=== PATIENT | female | born 1975 | race Caucasian/White ===

== ENCOUNTER 2021-01-11 14:59 | Emergency (ER) | payer OTHER, SELFPAY ==
[2021-01-11 15:06] VITALS: BP 139/88; PULSE 85; RESP 18; TEMP 36.7; O2SAT 100; BMI 29.0
--- NOTE | 2021-01-11 15:50 | PC.NURSE ---
completed interview with patient jennifer stated only medical issue for which she takes meds-hypothyroid for which she is current with levothyroxine.prev DX of bipolar d/o states she was treated 12 years ago and some treatment she felt she didnt need fills meds at [facility] LMP 2 weeks ago has two children aged 21 and 17. diet and sleep[ patterns have been off/irregluar recently. THC use daily up until a few weeks ago, denies other drug and etoh use. denies hallucinations contracts for safety
[2021-01-11 17:31] LABS: MANUAL DIFF FLAG NO
[2021-01-11 17:33] LABS: Basophils Percent Auto 0.6 % (0-2); Eosinophils Absolute Auto 0.1 X10*3/uL (0.0-0.4); Eosinophils Percent Auto 1.1 % (0-4); Hematocrit 38.5 % (37-47); Imm Gran Abs Auto 0.02 X10*3/uL (0.00-0.03); Imm Gran Pct Auto 0.3 % (0.0-0.4); Lymphocytes Absolute Auto 2.3 X10*3/uL (1.2-4.9); Lymphocytes Percent Auto 31.8 % (20-40); Mean Corpuscular HGB Conc 33.8 g/dl (31.0-35.0); Mean Corpuscular Volume 88.9 fL (80-98); Mean Platelet Volume 10.3 fL (9.4-12.3); Monocytes Absolute Auto 0.6 X10*3/uL (0.1-1.2); Monocytes Percent Auto 8.5 % (2-11); Neutrophils Absolute Auto 4.1 X10*3/uL (2.0-8.3); Neutrophils Percent Auto 57.7 % (45-73); Platelet Count 267 X10*3/uL (160-400); Red Blood Count 4.33 X10*6/uL (4.20-5.50); Red Cell Distribution Width 13.2 % (11.0-16.0); White Blood Count 7.2 X10*3/uL (4.8-10.8)
--- NOTE | 2021-01-11 17:36 | ED_ITS ---
HPI - Psych General Chief Complaint: Psychiatric Symptoms <Mamta Delgado PA-C - Last Filed: 01/11/21 18:10> Stated Complaint: SI <KRISTEN Posey Last Filed: 01/11/21 18:10> Time Seen by Provider: 01/11/21 15:35 <KRISTEN Posey Last Filed: 01/11/21 18:10> Source: patient <KRISTEN Posey Last Filed: 01/11/21 18:10> Mode of arrival: ambulatory <KRISTEN Posey Last Filed: 01/11/21 18:10> Limitations: no limitations <KRISTEN Posey Last Filed: 01/11/21 18:10> History of Present Illness HPI Narrative: Patient is a 45-year-old female with a past medical history of bipolar, diagnosed at the age of 32 on lithium for approximately 2-3 years but has been off of medications for 12 years who is here today for panic attacks and intrusive thoughts. Patient states she was sitting on her bed today with her 21-year-old daughter when she suddenly had a thought to punch her daughter in the head, she knew she had unwanted do this so she had to leave the room. She states she has thoughts like this quite often and it has been getting worse. She states she also has panic attacks with seem to exacerbate the thoughts. She states she also has thoughts to hurt herself but knows not to do so and does not have any plans to do so. She states she cannot control the thoughts but she does not want to go back on medications because they make her feel like she has owned out and they made her gain weight. She states she tried lithium for while and then was on other meds but she does not remember the names of them. She is not currently on any medication order she see a therapist. She states she her and has just been taking care of herself and ignoring her problems. 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 She states she took a half a mg of Ativan just prior to arrival. <KRISTEN Posey Last Filed: 01/11/21 18:10> Related Data Allergies/Adverse Reactions: Allergies Allergy/AdvReac Type Severity Reaction Status Date / Time No Known Allergies Allergy Verified 01/11/21 15:05 <Mamta Delgado PA-C - Last Filed: 01/11/21 18:10> Review of Systems Review of Systems: Yes all other systems are reviewed and are negative <Mamta Delgado PA-C - Last Filed: 01/11/21 18:10> COUNT INCLUDES THE [facility] Past Medical History Medical History: Medical History Anxiety Depression Hypothyroid <Mamta Delgado PA-C - Last Filed: 01/11/21 18:10> Social History Social History: Social History Advance Directives: No Advance Directives Information Provided: Yes Patient : No <Mamta Delgado PA-C - Last Filed: 01/11/21 18:10> Physical Exam Vital Signs: Vital Signs: Last Vital Signs Temp 98.0 F 01/11/21 15:06 Pulse 85 01/11/21 15:06 Resp 18 01/11/21 15:06 BP 139/88 01/11/21 15:06 Pulse Ox 100 01/11/21 15:06 Body Mass Index 29.0 <Mamta Delgado PA-C - Last Filed: 01/11/21 18:10> Vital Signs: Last Vital Signs Temp 98.0 F 01/11/21 15:06 Pulse 85 01/11/21 15:06 Resp 18 01/11/21 15:06 BP 139/88 01/11/21 15:06 Pulse Ox 100 01/11/21 15:06 Body Mass Index 29.0 <ОЛЕГ Golden-HAZEL - Last Filed: 01/13/21 01:14> Const: General: cooperative, healthy appearing, comfortable, no acute distress and well developed <Mamta Delgado PA-C - Last Filed: 01/11/21 18:10> Orientation/consciousness: patient oriented x3 <Mamta Delgado PA-C - Last Filed: 01/11/21 18:10> Limitations: no limitations <KRISTEN Posey Last Filed: 01/11/21 18:10> HENMT: Head: Yes normal to inspection <Mamta Delgado PA-C Jayden Last Filed: 01/11/21 18:10> Eyes: General: appearance normal, both eyes and all related structures <Mamta Delgado PA-C - Last Filed: 01/11/21 18:10> Neck: Neck: Yes normal visual inspection and Yes full ROM <JO PoseyAldo Tus reQRdos Last Filed: 01/11/21 18:10> Resp: Effort & Inspection: normal respiratory effort and able to speak in complete sentences <JO PoseyAldo - Last Filed: 01/11/21 18:10> Auscultation: clear to auscultation bilaterally <Mamta Delgado PA-C - Last Filed: 01/11/21 18:10> Cardio: Rate: regular rate <Mamta Delgado PA-C Tus reQRdos Last Filed: 01/11/21 18:10> Rhythm: regular rhythm <JO PoseyAldo Tus reQRdos Last Filed: 01/11/21 18:10> Heart sounds: normal S1 and S2 <Mamta Delgado PA-C Tus reQRdos Last Filed: 01/11/21 18:10> GI: Inspection: Yes normal to inspection <Mamta Delgado PA-C - Last Filed: 01/11/21 18:10> Palpation (GI): Soft to palpation and nontender <Mamta Delgado PA-C Tus reQRdos Last Filed: 01/11/21 18:10> Skin: General skin exam: no rashes or lesions noted <JO Posey Tus reQRdos Last Filed: 01/11/21 18:10> Neuro: General: patient oriented x3 <Mamta Delgado PA-C Tus reQRdos Last Filed: 01/11/21 18:10> Extrem: General: Yes normal to inspection <Mamta Delgado PA-C Jayden Last Filed: 01/11/21 18:10> Psych: Appearance: grossly normal and well kempt <Mamta Delgado PA-C Tus reQRdos Last Filed: 01/11/21 18:10> Speech and movement: Normal speech and movement present <Mamta Delgado PA-C - Last Filed: 01/11/21 18:10> Affect: Sad affect present and Anxious affect present <JO Posey - Last Filed: 01/11/21 18:10> Attitude: cooperative <Mamta Delgado PA-C - Last Filed: 01/11/21 18:10> Thought process: Normal thought process present <KRISTEN Posey Last Filed: 01/11/21 18:10> Thought content: Suicidality present (Intrusive thoughts but no plan), Homicidality present (Intrusive thoughts), delusions (Intrusive thoughts), no hallucinations and Depressive thoughts present <Mamta Delgado PA-C - Last Filed: 01/11/21 18:10> Insight: Fair insight present (Psych) <KRISTEN Posey Last Filed: 01/11/21 18:10> Judgement: Fair judgement present (Psych) <Mamta Delgado PA-C - Last Filed: 01/11/21 18:10> Course Course Course Narrative: Patient is a 45-year-old female with a past medical history of bipolar, diagnosed at the age of 32 on lithium for approximately 2-3 years but has been off of medications for 12 years who is here today for panic attacks and intrusive thoughts. VSS. Physical exam unremarkable, patient very distraught about the intrusive thought she is having to hurt herself or someone else but does not seem like she would act on it as she knows it is not a rational thought. Patient clearly needs an evaluation by psych as well as to be restarted on some bipolar medications. Will put in Ativan p.r.n. for anxiety and a BHN referral. <Mamta Delgado PA-C - Last Filed: 01/11/21 18:10> Reevaluation(s) Reevaluation #1: Sign-out to Arm[facility] <Mamta Delgado PA-C - Last Filed: 01/11/21 18:10> Time: 17:43 <KRISTEN Posey Last Filed: 01/11/21 18:10> Reevaluation #2: Patient was evaluated by crisis team. Patient denies HI or his SI. Patient is stressed out at home and at work. Does not want to deal with taking care of boyfriend. Patient wants to go home so she can follow-up with partial therapy and call Psychiatry. Patient will call her HR department so she can take family leave. I will have her speak to 1 of our Behavioral providers who can assess her. <ОЛЕГ Golden-BC - Last Filed: 01/13/21 01:14> Reevaluation #3: Patient evaluated by Behavioral provider who agrees with crisis team disposition. Patient will be discharged home to follow-up with partial program. Patient is agreeable to this plan and verbalizes understanding of instructions. She was given the opportunity to ask questions all questions answered. Patient denies SI or HI. Reports that she is safe to go home. The [facility] provider is sending 1 time dose of trazodone for her so she can get some rest. <ОЛЕГ Golden-BC - Last Filed: 01/13/21 01:14> MDM - Psych Lab Data Result diagrams: : 01/11/21 17:25 01/11/21 17:26 <Mamta Delgado PA-C - Last Filed: 01/11/21 18:10> Labs: Lab Results 01/11/21 01/11/21 01/11/21 Range/Units 17:18 17:25 17:26 WBC 7.2 (4.8-10.8) X10*3/uL RBC 4.33 (4.20-5.50) X10*6/uL Hgb 13.0 (12.0-16.0) g/dl Hct 38.5 (37-47) % MCV 88.9 (80-98) fL MCH 30.0 (27.0-33.0) pg MCHC 33.8 (31.0-35.0) g/dl RDW 13.2 (11.0-16.0) % Plt Count 267 (160-400) X10*3/uL MPV 10.3 (9.4-12.3) fL Immature Gran % (Auto) 0.3 (0.0-0.4) % Neut % (Auto) 57.7 (45-73) % Lymph % (Auto) 31.8 (20-40) % [place] % (Auto) 8.5 (2-11) % Eos % (Auto) 1.1 (0-4) % Baso % (Auto) 0.6 (0-2) % Lymph # (Auto) 2.3 (1.2-4.9) X10*3/uL [place] # (Auto) 0.6 (0.1-1.2) X10*3/uL Eos # (Auto) 0.1 (0.0-0.4) X10*3/uL Baso # (Auto) 0.0 (0.0-0.2) X10*3/uL Abs Immat Gran (auto) 0.02 (0.00-0.03) X10*3/uL Absolute Neuts (auto) 4.1 (2.0-8.3) X10*3/uL Absolute Nucleated RBC 0.000 (0.0-0.012) X10*3/uL Nucleated RBC % (auto) 0.0 (0.0-0.2) /100WBC Sodium 139 (135-145) mmol/L Potassium 3.9 (3.3-5.1) mmol/L Chloride 107 (96-108) mmol/L Carbon Dioxide 26 (22-29) mmol/L Anion Gap 10 L (12-20) BUN 10 (9-16) mg/dL Creatinine 0.73 (0.5-1.4) mg/dL Estim Creat Clear Calc 107.0 Estimated GFR > 60 Random Glucose 94 (60-115) mg/dL Calcium 9.4 (8.4-10.2) mg/dL Total Bilirubin 0.6 (0.0-1.0) mg/dL AST 10 (5-31) U/L ALT 12 (0-31) U/L Alkaline Phosphatase 67 (39-117) U/L Total Protein 7.1 (6.5-8.0) g/dL Albumin 4.4 (3.5-5.0) g/dL COVID-19 (MONE) Negative (Negative) COVID-19 Clin Com See Note <Mamta Delgado PA-C - Last Filed: 01/11/21 18:10> Lab Results 01/11/21 01/11/21 01/11/21 Range/Units 17:18 17:25 17:26 WBC 7.2 (4.8-10.8) X10*3/uL RBC 4.33 (4.20-5.50) X10*6/uL Hgb 13.0 (12.0-16.0) g/dl Hct 38.5 (37-47) % MCV 88.9 (80-98) fL MCH 30.0 (27.0-33.0) pg MCHC 33.8 (31.0-35.0) g/dl RDW 13.2 (11.0-16.0) % Plt Count 267 (160-400) X10*3/uL MPV 10.3 (9.4-12.3) fL Immature Gran % (Auto) 0.3 (0.0-0.4) % Neut % (Auto) 57.7 (45-73) % Lymph % (Auto) 31.8 (20-40) % [place] % (Auto) 8.5 (2-11) % Eos % (Auto) 1.1 (0-4) % Baso % (Auto) 0.6 (0-2) % Lymph # (Auto) 2.3 (1.2-4.9) X10*3/uL [place] # (Auto) 0.6 (0.1-1.2) X10*3/uL Eos # (Auto) 0.1 (0.0-0.4) X10*3/uL Baso # (Auto) 0.0 (0.0-0.2) X10*3/uL Abs Immat Gran (auto) 0.02 (0.00-0.03) X10*3/uL Absolute Neuts (auto) 4.1 (2.0-8.3) X10*3/uL Absolute Nucleated RBC 0.000 (0.0-0.012) X10*3/uL Nucleated RBC % (auto) 0.0 (0.0-0.2) /100WBC Sodium 139 (135-145) mmol/L Potassium 3.9 (3.3-5.1) mmol/L Chloride 107 (96-108) mmol/L Carbon Dioxide 26 (22-29) mmol/L Anion Gap 10 L (12-20) BUN 10 (9-16) mg/dL Creatinine 0.73 (0.5-1.4) mg/dL Estim Creat Clear Calc 107.0 Estimated GFR > 60 Random Glucose 94 (60-115) mg/dL Calcium 9.4 (8.4-10.2) mg/dL Total Bilirubin 0.6 (0.0-1.0) mg/dL AST 10 (5-31) U/L ALT 12 (0-31) U/L Alkaline Phosphatase 67 (39-117) U/L Total Protein 7.1 (6.5-8.0) g/dL Albumin 4.4 (3.5-5.0) g/dL COVID-19 (MONE) Negative (Negative) COVID-19 Clin Com See Note <Lou Basilio, SIGNALING PROJECT ENGINEER-BC - Last Filed: 01/13/21 01:14> Discharge Plan Discharge Clinical Impression: Acute psychosis, Depression <Mamta Delgado PA-C - Last Filed: 01/11/21 18:10> Patient Disposition: Home, Self-Care <Mamta Delgado PA-C - Last Filed: 01/11/21 18:10> Instructions: Depression (ED), Suicide Prevention (ED) <Mamta Delgado PA-C - Last Filed: 01/11/21 18:10> Additional Instructions: You were seen here today after increase in anxiety and depression. You were seen by crisis team and Behavioral provider. Please start with the partial program. You may return to emergency department if your symptoms will get worse or if you will experience any additional concerning symptoms. Behavioral provider send you a script for trazodone which is a sleeping medication. <Mamta Delgado PA-C - Last Filed: 01/11/21 18:10> Stand Alone Forms: Work/School Release <Mamta Delgado PA-C - Last Filed: 01/11/21 18:10> Interventions: ED Discharge Assessment Last Done: 01/11/21 21:04 <Mamta Delgado PA-C - Last Filed: 01/11/21 18:10> Discharge Date/Time: 01/11/21 21:19 <Mamta Delgado PA-C - Last Filed: 01/11/21 18:10>
[2021-01-11 17:48] LABS: Alanine Aminotransferase 12 U/L (0-31); Albumin Level 4.4 g/dL (3.5-5.0); Alkaline Phosphatase 67 U/L (39-117); Anion Gap 10 (12-20); Aspartate Amino Transferase 10 U/L (5-31); Bilirubin Total 0.6 mg/dL (0.0-1.0); Blood Urea Nitrogen 10 mg/dL (9-16); Calcium 9.4 mg/dL (8.4-10.2); Carbon Dioxide 26 mmol/L (22-29); Chloride 107 mmol/L (96-108); Estimated Glomerular Filt Rate > 60; Glucose Random 94 mg/dL (60-115); Potassium 3.9 mmol/L (3.3-5.1); Sodium 139 mmol/L (135-145); Total Protein 7.1 g/dL (6.5-8.0)
[2021-01-11 17:49] LABS: COVID-19 Test Negative (Negative); IDNOW Serial# 55D5AD1C
--- NOTE | 2021-01-11 20:43 | PM.PSYCN ---
History of Present Illness Date of Service: 01/11/21 Chief Complaint: SI Reason for Consult: Disposition, medication Requesting physician: Mamta Delgado Sources of Information: patient interviewed, chart reviewed and crisis/core team assessment reviewed HPI Narrative: Pt is a 45 y.o. Female who carries a diagnosis of generalized anxiety disorder, panic disorder, unspecified depressive disorder. She presented to [facility] ED reporting an increase in panic attacks, poor sleep. Utox negative, No alcohol use.?? I evaluated the pt this evening and upon interview she reports she has been having ?panic attacks.? Reports her sleep is restless, appetite ?is not any better,? attributes this to anxiety. Reports she feels anxious about having panic attacks, ruminates on this. Also reports intrusive thoughts of self harm and harming others. Stated she had thoughts to ?break my wrist? and to ?punch my [adult] daughter in the face.? These thoughts cause distress, bother her, stated she ran into her room and cried, denies intent to act on these thoughts. Sx have been worse x a couple weeks, however says her sleep is ?always dada difficult.? Precipitating factors include the pandemic, says ?covid came and crashed the [employer] green party or didn?t help the green party.? Has financial stress, does not like her job. Endorses sx of depression, says she feels ?stuck.? Reports long hx of depression and says she has a tendency to ?bury my head in the sand? when she is stressed, progressing to lack of self care. Feels like ?nothing is going my way.? She denies psychotic sx. No hx of manic or hypomanic episodes endorsed, however has been on lithium in the past. She is hyperverbal during interview but speech is non-pressured. Has remote hx of psych treatment, last took psychotropic medication 12 yr ago. Says she stopped taking meds because ?I didnt want all of that, it didnt do enough to help me,? noticed wt gain. Continues to report ambivalence about ?relying on a medication.? She has an aunt who is a prescriber and says she has prescribed her short term ativan recently for anxiety but says she does not like to take it. She met with the CARE team and is adamant that she does not want inpatient level of care, is interested in PHP. She has been having difficulty obtaining OP services due to not having a PCP, called OP agencies but was told earliest appt for therapist is March. She currently denies SI/SIB upon inquiry. No hx of suicide attempts or self harm. Denies aggression or assaultive ideation. Says she feels safe.? Past med trials: ativan, lithium (diagnosed at age 32, on lithium for 2-3 yrs) PMH: -Hypothyroidism (on levothyroxine) Substance use hx: -Cannabis: used daily ?up until a few weeks ago? due to increased anxiety. 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 Medical Evaluation Reviewed: Yes [facility] Medical History (Updated 01/21/21 @ 08:42 by Patricia Key NP) Anxiety Depression Hypothyroid Diagnostics Vital Signs (24Hr): Vital Signs - 24 hr 01/11/21 15:06 Temperature 98.0 F Pulse Rate 85 Respiratory Rate 18 Blood Pressure 139/88 Pulse Oximetry 100 Body Mass Index 29.0 Labs Results: 01/11/21 17:25 01/11/21 17:26 Labs: Laboratory Results - last 48 hr 01/11/21 01/11/21 01/11/21 17:18 17:25 17:26 WBC 7.2 RBC 4.33 Hgb 13.0 Hct 38.5 MCV 88.9 MCH 30.0 MCHC 33.8 RDW 13.2 Plt Count 267 MPV 10.3 Immature Gran % (Auto) 0.3 Neut % (Auto) 57.7 Lymph % (Auto) 31.8 [place] % (Auto) 8.5 Eos % (Auto) 1.1 Baso % (Auto) 0.6 Lymph # (Auto) 2.3 [place] # (Auto) 0.6 Eos # (Auto) 0.1 Baso # (Auto) 0.0 Abs Immat Gran (auto) 0.02 Absolute Neuts (auto) 4.1 Absolute Nucleated RBC 0.000 Nucleated RBC % (auto) 0.0 Sodium 139 Potassium 3.9 Chloride 107 Carbon Dioxide 26 Anion Gap 10 L BUN 10 Creatinine 0.73 Estim Creat Clear Calc 107.0 Estimated GFR > 60 Random Glucose 94 Calcium 9.4 Total Bilirubin 0.6 AST 10 ALT 12 Alkaline Phosphatase 67 Total Protein 7.1 Albumin 4.4 COVID-19 (MONE) Negative COVID-19 Clin Com See Note Mental Status Exam Mental Status Exam Narrative: A&O. In hospital attire, lying down, somewhat unkempt hair, normal body habitus. Good eye contact, attentive. No Tics or Tremors. No abnormal involuntary movements. Calm, cooperative, engaged. Hyperverbal. Non-pressured speech, spontaneous with regular rate and rhythm, normal volume and prosody. No prolonged speech latency or dysarthria. Mood is ?stressed,? affect is tired. Denies SI/SIB/HI upon inquiry. Denies A/VH or delusional thought content. Thoughts are ruminative. No known cognitive or memory impairment. Insight/ Judgment fair and adequate. Medications Medications Current Medications Generic Name Dose Route Start Last Admin Trade Name Freq PRN Reason Stop Dose Admin Lorazepam 1 mg 01/11/21 17:35 Lorazepam 1 Mg Tablet PO ONCE PRN anxiety Allergies Allergies Allergy/AdvReac Type Severity Reaction Status Date / Time No Known Allergies Allergy Verified 01/11/21 15:05 Assessment & Plan Assessment & Plan (1) Depression: Status: Acute Code(s): F32.9 - Major depressive disorder, single episode, unspecified (2) Anxiety: Status: Acute Code(s): F41.9 - Anxiety disorder, unspecified Assessment and Plan: Plan: Patient wants to go home so she can follow-up with PHP at [facility]. CARE team made referral. Plans to call her HR department so she can take family leave. She does not want to be discharged on medication but asks for one time dose of trazodone to help her sleep tonight. Patient is currently medically cleared. ? Greater than 50% of the session was spent on counseling and/or coordination of care
[2021-01-11] MEDS: traZODone HCL 50 MG TABLET PO (20:50)
--- NOTE | 2021-01-12 00:39 | MHC.CARE ---
Pt is a 45 year old female who presents to [facility] due to worsening depression and intrusive thoughts. Pt reports she has a past hx of bipolar dx, has not been on any medications and is reluctant to. Pt reports she was having thoughts today to break her wrist . She presents as irritable and angry with multiple psychosocial stressors. Pt feels she works to live and doesn't have enough funds to enjoy life. She reports I have nothing my life is falling apart . 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 She talks about a healthy relationship with her boyfriend but his two young children just moved in and he is stressed due to recent court and custody battles with the mother. Pt states she has intrusive thoughts and yesterday had an intrusive thought to punch my daughter in the face . She reports she ran to her room and cried, stating that she would never hurt anyone. She reports she is extremely stressed and scared but states she will not act on these thoughts. Pt reports her appetite and sleep is poor. Pt has no previous PHP or IP hx. She has no hx of attempts. Presents with vague SI, no plan or intent. Requesting too be d/c home and t/w recommended PHP in which she is receptive and interested in. Pt also met with Psych provider Patricia Key NP who agreed with disposition. A referral will be placed.
== END 2021-01-11 21:19 | disposition home or self-care (01) ==
PROVIDERS: Physician Assistant; Emergency Provider Emergency Medicine Emergency Medical Services
DX: F33.1 Major depressive disorder, recurrent, moderate (principal); F41.9 Anxiety disorder, unspecified; R45.851 Suicidal ideations; Z20.822 Contact with and (suspected) exposure to COVID-19
CPT/HCPCS: 36415; 80053; 85025; 87635; 99283; 99284

== ENCOUNTER 2025-04-27 08:02 | Outpatient (REF) | payer OTHER, SELFPAY ==
--- NOTE | ~2025-04-27 | XR_ITS ---
EXAMINATION: XR KNEE, RIGHT CLINICAL INFORMATION: M25.569 - Pain in unspecified knee COMPARISON: None available. TECHNIQUE: AP and lateral views of the right knee. FINDINGS: No acute fracture or dislocation. Mild asymmetric joint space narrowing medial compartment. Small suprapatellar bursa joint effusion. No lytic or blastic lesions. No gross soft tissue calcifications. XR/XR knee RT 2V IMPRESSION: Mild medial compartment osteoarthrosis/osteoarthritis. Small volume suprapatellar bursa joint effusion. Electronically signed by: Bong Villarreal MD 04/27/2025 11:10 AM EVELYN MENDOZA
--- OUTSIDE RECORDS SUMMARY | 2025-04-27 08:05 | XMS_ITS | Encounter Summary ---
Author Organization [facility] Address [address] [place] [address] Care Team Providers Care Bus Boy Name Role Phone Julieta Rausch CLOSING AGENT Primary Care Provi earline Reason for Visit * Reason Comments Medication Refill Encounter Details Date Type Department Care Team (Late st Contact Info) Description 09/06/2020 [facility] [address] [place] [address] Julieta Rausch, CLOSING AGENT [address] [place] [address] Medication Refill Social History Tobacco Use Types Packs/Day Years Used Date Smoking Tobacco: Never Smokeless Tobacco: Never Alcohol Use Standard Drinks/Week Comments Not Asked 0 (1 standard drink = 0.6 oz pur e alcohol) Comments No Sex and Gender Information Value Date Recorded Sex Assigned at Not on file Legal Sex Female 8:20 PM EDT Gender Identity Not on file Sexual Orientation Not on file documented as of this encounter Plan of Treatment Not on file documented as of this encounter Visit Diagnoses Diagnosis Other specified hypothyroidism documented in this encounter Care Teams Bus Boy Relationship Specialty Start Date End Date Julieta Rausch, CLOSING AGENT PCP - General 06/22/14 documented as of this encounter
--- OUTSIDE RECORDS SUMMARY | 2025-04-27 08:06 | XMS_ITS | Encounter Summary ---
Author Organization [facility] Address [address] [place] [address] Care Team Providers Care Corrosion Control Technician Name Role Phone Julieta Rausch APRN Primary Care Provi earline Encounter Details Date Type Department Care Team ([facility] st Contact Info) Description 06/21/2014 Scanned Document [facility] [address] [place] [address] Shayan Tracey MD [address] [id number] Social History Tobacco Use Types Packs/Day Years Used Date Smoking Tobacco: Never Alcohol Use Standard Drinks/Week Comments Not Asked 0 (1 standard drink = 0.6 oz pur e alcohol) Comments Unknown Sex and Gender Information Value Date Recorded Sex Assigned at Not on file Legal Sex Female 8:20 PM EDT Gender Identity Not on file Sexual Orientation Not on file documented as of this encounter Plan of Treatment Not on file documented as of this encounter Visit Diagnoses Not on filedocumented in this encounter Care Teams Corrosion Control Technician Relationship Specialty Start Date End Date Julieta Rausch APRN PCP - General 06/22/14 documented as of this encounter
--- OUTSIDE RECORDS SUMMARY | 2025-04-27 08:06 | XMS_ITS | Clinical Summary ---
Author Organization [facility] [address] Address [address] [address] Care Team Providers Care Manager Distribution Center Name Role Phone Nahomido Julieta Wilson PRABHAKAR Primary Care Provi earline Allergies No known active allergies Medications hydroCHLOROthiazide (MICROZIDE) 12.5 mg capsule Take 1 capsule (12.5 mg total) by mouth daily. 90 capsule 1 0 Active levothyroxine (SYNTHROID, LEVOTHROID) 125 MCG tabletIndications:O ther specified hypothyroidism TAKE 1 TABLET(125 MCG) BY MOUTH DAILY 90 tablet 1 Active Active Problems Problem Noted Date Diagnosed Date Routine general medical exam ination at a health care facility 09/01/2020 Overview (09/01/2020): TDAP:09/15/2012 FLU: ZOSTAVAX: P23: P13: LABS:ordered 08/16/2020 COLO: MAMMO: PAP: 01/08/2016 Reel DEXA: Pruritus ani 05/29/2018 Attention deficit hyperactiv ity disorder (ADHD), predominantly inattentive type 03/20/2014 Overview (02/10/2017): This Dx was updated with the IMO Load 02/09/2017 Hypothyroid 03/20/2014 Immunizations Immunization Administration Dates Next Due Tdap 09/15/2012 Family History Medical History Relation Name Comments Diabetes Father Breast cancer Maternal Aunt Premature ovarian failure Mother Colon cancer Neg Hx Ovarian cancer Neg Hx Relation Name Status Comments Father Maternal Aunt Mother Alive Social History Tobacco Use Types Packs/Day Years Used Date Smoking Tobacco: Never Smokeless Tobacco: Never Alcohol Use Standard Drinks/Week Comments Not Asked 0 (1 standard drink = 0.6 oz pur e alcohol) Comments No Sex and Gender Information Value Date Recorded Sex Assigned at Not on file Legal Sex Female 8:20 PM EDT Gender Identity Not on file Sexual Orientation Not on file Last Filed Vital Signs Vital Sign Reading Time Taken Comments Blood Pressure 100/70 07/15/2019 7:10 AM EST Pulse 80 02/14/2020 7:35 AM EDT Temperature 36.3 C (97.3 F) 02/14/2020 7:35 AM EDT Respiratory Rate 16 07/15/2019 7:10 AM EST Oxygen Saturation 97% 02/14/2020 7:35 AM EDT Inhaled Oxygen Concentration - - Weight 83 kg (183 lb) 07/15/2019 7:10 AM EST Height 167.6 cm (5' 6 ) 07/15/2019 7:10 AM EST Body Mass Index 29.54 07/15/2019 7:10 AM EST Plan of Treatment Health Maintenance Due Date Last Done Comments HIV screening 1990 Hepatitis C screening 10/16/1995 Breast cancer screening 2017 Cervical cancer screening 07/12/2019 07/11/2014 Tetanus adult (Td q 10,TDAP once) 09/15/2022 09/15/2012 Colon cancer screening, Colonoscopy 2022 Diabetes screening 2022 08/17/2018, 03/05/2017 Lipid disorder screening 08/18/2023 019, 08/17/2018 Influenza vaccine 12/10/2024 Covid-19 vaccine series ( - 2024- season) 2025 RSV Immunization (1 - 1-dose 75+ series) 2052 Meningococcal B Vaccine Aged Out No l onger eligible based on patient's age to complete this topic Meningococcal Vaccine Aged Out No diana anastacio eligible based on patient's age to complete this topic Pneumococcal Vaccine (2 - 49 years) Aged Out No longer eligible b ased on patient's age to complete this topic Procedures Procedure Name Priority Date/Time Associated Diagnosis Comments COMPREHENSIVE METABOLIC PANEL Routine 08/17/2018 7:43 AM EDT CHOLESTEROL, TOTAL Routine 08/17/2018 7: 43 AM EDT ZZZCYTOLOGY PIANO S[employer]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 CASES (YH) Routine 07/11/2014 7:50 PM EST from Last 3 Months or Most Recently Relevant to Health Maintenance Results * Cholesterol, total (08/17/2018 7:43 AM EDT) Cholesterol, Total 151 <200 mg/dL [facility] 08/17/2018 7:43 AM EDT 08/17/2018 7:43 AM EDT Narrative [facility] - 08/18/2018 7:27 AM EDT FASTING:NO FASTING: NO us Julieta Rausch PATIENT ACCOUNT REPRESENTATIVE LAB BLOOD ORDERABLE S Final Result Performing Organization Address City/State/[facility] Co de Phone Number [facility] [address] [place] [address] * Comprehensive metabolic panel (08/17/2018 7:43 AM EDT) Glucose 85 65 - 139 mg/dL [facility] Comment: Non-fasting reference interval BUN 15 7 - 25 mg/dL [facility] Creatinine 0.98 0.50 - 1.10 mg/dL [facility] eGFR (NON -Ellen n) 72 > OR = 60 mL/min/1. 73m2 [facility] eGFR (Afr Amer) 84 > OR = 60 mL/min/1. 73m2 [facility] BUN/Creatinine Ratio NOT APPLICABLE 6 - 22 (calc) [facility] Sodium 140 135 - 146 mmol/L [facility] Potassium 3.7 3.5 - 5.3 mmol/L [facility] Chloride 105 98 - 110 mmol/L [facility] CO2 28 20 - 32 mmol/L [facility] Calcium 9.1 8.6 - 10.2 mg/dL [facility] Protein, Total 6.9 6.1 - 8.1 g/dL [facility] Albumin 4.2 3.6 - 5.1 g/dL [facility] Globulin 2.7 1.9 - 3.7 g/dL (calc) [facility] Albumin/Globuli n Ratio 1.6 1.0 - 2.5 (calc) [facility] Bilirubin, Total 0.5 0.2 - 1.2 mg/dL [facility] Alkaline Phosphatase 61 33 - 115 U/L [facility] AST 16 10 - 30 U/L [facility] ALT 11 6 - 29 U/L [facility] 08/17/2018 7:43 AM EDT 08/17/2018 7:43 AM EDT Narrative [facility] - 08/18/2018 7:27 AM EDT FASTING:NO FASTING: NO us Julieta Barlowcoco PATIENT ACCOUNT REPRESENTATIVE LAB BLOOD ORDERABLE S Final Result [facility] [address] [place] [address] * Cytology fugitive investigator cases () (07/11/2014 7:50 PM EST) Cytology Vineyard Supervisor Cases CYTOLOGY REPORT Procedures/Addend a Attached Patient: BOB BUTLER MR #: [id number] Submitted by: Hector Vasquez M.D. FINAL DIAGNOSIS SUREPATH PAP SMEAR: Primary Diagnosis: NEGATIVE FOR INTRAEPITHELIAL LESION OR MALIGNANCY. Additional Findings: ENDOCERVICAL/TRANS FORMATION ZONE COMPONENT PRESENT. FUNGAL ORGANISMS CONSISTENT WITH SABA SPECIES. HIGH RISK HPV CO-TESTING HAS BEEN PERFORMED AND THE RESULT IS NEGATIVE. Specimen Adequacy: THIS SPECIMEN IS SATISFACTORY FOR EVALUATION. This specimen was manually screened with the assistance of the [email or web address] [facility] Imaging System. Recommendation: According to the current ASCCP guidelines for managing abnormal cervical cancer screening tests, women, with negative cytology (including those lacking an adequate endocervical/trans itional zone component) and negative HPV as well as a history of negative screens, should be followed according to the routine screening schedule such as 3 year screening with cytology alone or every 5 years with cytology and high risk HPV cotesting. (Massnawaf et al. J Low Genital Tract Disease. 2013; 17: S1) NOTE: Cervical/vaginal cytology is a screening tool for cervical carcinoma and its precursor lesions with an inherent false negative rate. It is an inaccurate test for detection of endometrial lesions and should not be used to evaluate suspected endometrial abnormalities. (The [place] System, 2001) 07/15/2014 10:37 * Report Electronically Signed Out * This electronic signature indicates that the pathologist has personally reviewed the available gross and/or microscopic material and has based the diagnosis on that evaluation. Specimen(s) Received: SUREPATH PAP SMEAR Clinical History and Impression: {Not Available} Date of LMP: 07/07/14 Procedures/Addenda MOLECULAR DX: HR HPV SCREENING Ordered: 07/11/2014 Status: Signed Out Reported: 07/15/2014 Pathologist: [facility] Interpretation Specimen: SUREPATH PAP SMEAR BELOW CUTOFF FOR HIGH RISK HPV HPV types 16, 18, 31, 33, 35, 39, 45, 51, 52, 56, 58, 59, 66, and 68 DNA were either considered NEGATIVE, undetectable,or below the pre-set threshold. This test was performed at [facility] Department of Pathology [address] [facility], -[address] [place] [id number] CLIA# [id number] using the Faith erlin 4800 HPV Test System and is approved by the Food and Drug Administration (FDA) for use on samples collected in Cytyc Preservcyt Solution (ThinPrep). When using Surepath liquid based samples, the performance characteristics have been determined by [facility]. Although testing on SurePath samples has not been cleared or approved by the FDA, the FDA has determined that such clearance or approval is not necessary. [facility] 07/11/2014 7:50 PM EST Comment:SUREPATH PAP SMEAR us Hector Vasquez MD PATHOLOGY/CYTOLOGY ORDER KIP Final Result [facility] Department of Pathology [address] [place] [address] [place] [id number] from Last 3 Months or Most Recently Relevant to Health Maintenance Insurance AETNA AETNA AETNA AETNA AETNA Care Teams Manager Distribution Center Relationship Specialty Start Date End Date Julieta Rausch, PATIENT ACCOUNT REPRESENTATIVE PCP - General 06/22/14
--- OUTSIDE RECORDS SUMMARY | 2025-04-27 08:06 | XMS_ITS | Patient Health Record ---
Author Organization [facility] Address [address] [address] Care Team Providers Care Competitive Intelligence Manager Name Role Phone TOMA PERES Unavailable [phone] Reason For Referral No Information Medications Medication SIG (Take, Route, Frequency, Duration) Notes Start Date End Date Status hydroCHLOROthiazide 12.5 MG 1 capsule in the morning Orally Once a day; Duration: 30 day(s) Active Adderall 30 MG 1 tablet Orally Twic e a day Active Levothyroxine Sodium 125 MCG Orally Once a day Active Clobetasol Propionate 0.05 % 1 applicati on to affected area Externally Twice a day; Duration: 56 days 07/13/2018 Active Social History Tobacco Use: Social History Observation Description Date Details (start date - stop date) Never Smoker NA - NA Tobacco Use/Smoking Question Answer Notes Are you a nonsmoker Alcohol Screen (Audit-C) Question Answer Notes Did you have a drink contain ing alcohol in the past year? Yes How often did you have a dri nk containing alcohol in the past year? 2 to 4 times a month (2 points) How many drinks did you have on a typical day when you were drinking in the past year? 1 or 2 drinks (0 point) Points 2 Interpretation Negative Sexual History Question Answer Notes Had sex in the past 12 months (vaginal, oral, or anal)? Yes with Men only Prevention strategies discussed: Other Problems Problem Type SNOMED Code ICD Code Onset Dates Problem Status W/U Status Risk Notes Problem History of dysplasia of cervix (870088997) Personal history of cervical dysplasia (Z87.410) Active confirmed Plan Of Treatment Pending Test Test Name Order Date Test, Urine 09/03/2018 MM Digital Screening Mammogram 3D 2018 Vulvar Biopsy 07/13/2018 Insurance Providers Payer Name Payer Address Payer Phone Subscriber Number Group Number Insured Name Patient Relationship to Insured Coverage Start Date Coverage End Date A[employer] [address] [place] [address] [id number] BOB PEREIRA Self - patient is the insured Medical (General) History Medical History History ICD Code Essential (primary) hypertension I10 Chlamydial infection, unspecified A74.9 Postprocedural hypothyroidism E89.0 Pruritus ani L29.0 Dysuria R30.0 Personal history of cervical dysplasia Z 87.410 Low grade squamous intraepit helial lesion on cytologic smear of cervix (LGSIL) R87.612 Surgical History Surgery Date(Month/Year) 10/17/99 11/27/03 Bilateral Tubal Ligation 11/27/03 Colposcopy 08/21/17 LEEP at 31 Hospitalization History Reason Date(Month/Year) See Surgical Hx
--- OUTSIDE RECORDS SUMMARY | 2025-04-27 08:06 | XMS_ITS | Clinical Summary ---
Author Organization [facility] Address [address] [place] [address] Care Team Providers Care Employee'S Representative Name Role Phone Unavailable Primary Care Provider Unavailabl e Immunizations Immunization Administration Dates Next Due Tdap 09/15/2012 Social History Tobacco Use Types Packs/Day Years Used Date Smoking Tobacco: Never Assessed Comments Unknown Sex and Gender Information Value Date Recorded Sex Assigned at Not on file Legal Sex Female 2:48 PM EDT Gender Identity Not on file Sexual Orientation Not on file Plan of Treatment Health Maintenance Due Date Last Done Comments Hepatitis C Virus Screening 1977 HIV Screening 1990 Hepatitis B Vaccines (1 of 3 - 19+ 3-dose series) 1996 DTaP/Tdap/Td Vaccines (2 - T d or Tdap) 09/15/2022 09/15/2012 COVID-19 Vaccine (2024-2 6 season) 2025 Pneumococcal Vaccine: Pediat brigid (0-5 Years) and At-Risk Patients (6 to 49 Years) Aged Out No longer eligible b ased on patient's age to complete this topic
--- OUTSIDE RECORDS SUMMARY | 2025-04-27 08:06 | XMS_ITS | Clinical Summary ---
Author Organization [facility] Address [address] [place] [address] Care Team Providers Care District Manager Postal Service Name Role Phone Pcp, No Primary Care Provider Unavailabl e Medications levothyroxine (SYNTHROID, LEVOTHROID) 125 mcg tablet TAKE 1 TABLET(125 MCG) BY MOUTH 1 TIME EACH DAY BEFORE BREAKFAST 90 tablet 1 Active Social History Tobacco Use Types Packs/Day Years Used Date Smoking Tobacco: Never Assessed Comments Unknown Sex and Gender Information Value Date Recorded Sex Assigned at Not on file Legal Sex Female 2:11 PM EST Gender Identity Not on file Sexual Orientation Not on file Plan of Treatment Health Maintenance Due Date Last Done Comments CT Colonography 1977 Colonoscopy 1977 Colorectal Cancer Screening 1977 FIT-DNA 1977 FIT 1977 FOBT 1977 Mammogram 1977 Sigmoidoscopy 1977 Pap Smear 1998 Cervical Cancer Screening 10/16/2007 HPV/Cotest 10/16/2007 Annual Physical Exam 01/07/2017 01/08/2016, 07/11/2014 Tdap and Td Vaccines Adult 09/15/2022 09/15/2012 COVID-19 Vaccine ( - 2024-2 6 season) 2025 Influenza Vaccine (#1) 2025 HIB Vaccines Aged Out No longer eligi ble based on patient's age to complete this topic HPV Vaccines (No Doses Required) Completed Hepatitis A Vaccines Aged Out No long er eligible based on patient's age to complete this topic IPV Vaccines Aged Out No longer eligi ble based on patient's age to complete this topic Meningococcal Vaccine Aged Out No diana anastacio eligible based on patient's age to complete this topic Pneumococcal Vaccine: Peds ( 0 to 5 Yrs) and At-Risk Pts (6 to 49 Yrs) Aged Out No longer eligible b ased on patient's age to complete this topic RSV <20 Months Aged Out No longer laura carpenter based on patient's age to complete this topic Care Teams District Manager Postal Service Relationship Specialty Start Date End Date Pcp, No [place] [address] PCP - General 11/18/23
== END 2025-04-27 08:03 | disposition home or self-care (01) ==
LOC: HO.HOSX 08:02
PROVIDERS: Visit Provider Physician Assistant
DX: M70.41 Prepatellar bursitis, right knee (principal)
CPT/HCPCS: 73560

== ENCOUNTER 2025-04-27 10:59 | Outpatient (AMB) | payer OTHER, SELFPAY ==
--- NOTE | 2025-04-27 11:10 | A.OFFVIS_ITS ---
Vital Signs 04/27/25 11:17 Height 5 ft 6 in Weight 165 lb BMI 26.6 Intake Visit Reasons: FC-nondisplaced fracture of right patella Intake Note: Lori is a 49 year old female who presents today as a new patient for a Urgent Care follow up of her right patella fracture, DOI 04/22/25. Today patient reports having a fall while walking her dog. She presented to [facility], where x-rays were obtained and was placed in a hinged knee brace. Today patient reports pain at the anterior side of knee. States in the beginning she struggled with lifting her leg. Her pain increases with stair use. No previous treatments to her knee. Allergies No Known Allergies Allergy (Verified 04/27/25 11:22) Medication List - Last Reviewed 04/27/25 by ANGELINA Peterson bupropion HCl SR 100 mg PO QAM dextroamphetamine-amphetamine 30 mg 1 tab PO QAM ibuprofen 600 mg PO Q6H levothyroxine mcg PO oxcarbazepine 1,200 mg PO DAILY quetiapine 50 mg PO BEDTIME HPI Comments Details: History of Present Illness The patient is a 49 year old female presenting for follow-up of a left knee injury. She sustained the injury on April 22 after falling directly on the front of her knee while walking her dog. She was evaluated in the Urgent care the following day, where X-rays were performed. She was informed that there was too much swelling to definitively rule out a fracture, but a fracture was considered a possibility. Since the injury, she reports her pain has improved overall, but she has developed new pain when she keeps her leg straight. She reports significant pain while driving for a long duration. She has been taking 600 mg of ibuprofen as directed by urgent care. Social History - Exercise: The patient walks her 120-pound chocolate lab who is known to pull on the leash. - Employment: She drives approximately 1 hour and 45 minutes to work once a week. 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 - Reports pain with repetitive motion during long drives. - Constitutional: Denies kidney issues. - Gastrointestinal: Denies history of bleeding ulcers. Physical Exam Exam Exam: Physical Exam - Musculoskeletal, Left Lower Extremity: Full active range of motion including extension and flexion. - Tenderness to palpation over the patellar tendon. - Quadriceps and patellar tendon mechanisms are intact. Vital Signs: BMI result Body Mass Index 26.6 Results Reviewed Results Reviewed: Xrays were obtained in the office today and personally reviewed by me of the right knee negative for obvious fracture Assessment & Plan Assessment & Plan (1) Bursitis, prepatellar, right: Code(s): M70.41 - Prepatellar bursitis, right knee Category: Medical Plan Plan 1. Acute Left Knee Injury The patient presents after a fall onto her left knee. Review of X-rays shows the kneecap is in good position and there is no transverse fracture, though a non- displaced longitudinal fracture is a minimal possibility. Clinical findings are consistent with prepatellar bursitis. As the potential fracture is non-displaced and the extensor mechanism is intact, surgical intervention is not required. The plan is for conservative management. Prescribed ibuprofen 800 mg three times a day for two weeks. The patient is advised to limit activities that cause pain but to continue to work on her range of motion. A genumed knee brace was given in the office today and is recommended for use when active, such as when walking her dog. She was counseled to have someone accompany her when walking her dog for the next two weeks to prevent reinjury. Full recovery is anticipated in four to six weeks, and she should be able to participate in her road race in July. A referral to physical therapy is offered if she experiences ongoing weakness or limited motion. Follow-up is recommended in 3-4 weeks only if her symptoms do not improve. Consent Patient was informed and verbally consented to the use of an ambient scribe for clinic note documentation during this visit. Orders: Orders XR knee RT 2V Today M25.569 - Pain in unspecified knee Medications: New ibuprofen 800 mg PO Q8H 42 tabs 0RF 14 days Coding Level of Care Code New Pt Level 3 (68287) Add On Problem Visit Only Diagnoses Bursitis, prepatellar, right M70.41
[2025-04-27 11:17] VITALS: BMI 26.6
--- OUTSIDE RECORDS SUMMARY | 2025-04-27 14:26 | XMS_ITS | Clinical Summary ---
Author Organization [facility] Address [address] [place] [address] Phone Care Team Providers Care Patch Finisher Name Role Phone Adeline Worrell MD Primary Care Pr ovider Allergies No known active allergies Medications polyethylene glycol (MIRALAX) 17 gram packet Take 17 g by mouth 1 (one) time each day. 4 Active ketoconazole (NIZORAL) 2 % shampoo Apply topically. 4 Active amphetamine-dex troamphetamine (ADDERALL) 30 mg tablet Take 1 tablet (30 mg total) by mouth 1 (one) time each day. Active OXcarbazepine (TRILEPTAL) 300 mg tablet Take 4 tablets (1,200 mg total) by mouth at bedtime. Active QUEtiapine (SEROquel) 50 mg tablet Take 10 tablets (500 mg total) by mouth at bedtime. Active clobetasoL (TEMOVATE) 0.05 % creamIndication s:Perineal rash in female Apply topically if needed (1-2x per month after menses). 15 g 5 Active polyethylene glycol (Golytely) 236-22.74-6.74 -5.86 gram solution Take 4L by mouth once for one dose. May substitue any PEG. Starting at 6PM the night before your procedure drink 1 8oz glasses at your own pace until you complete half of the gallon. Finish 2nd half of the gallon 5 hours before your procedure. 4000 mL 5 Active bisacodyL (DULCOLAX) 5 mg EC tablet Take 2 tablets by mouth right before beginning bowel prep. See instructions provided by the office 2 tablet 5 Active buPROPion SR (WELLBUTRIN SR) 100 mg 12 hr tablet Take 1 tablet (100 mg total) by mouth 1 (one) time each day in the morning. 5 Active levothyroxine (SYNTHROID, LEVOTHROID) 125 mcg tablet TAKE 1 TABLET BY MOUTH DAILY. TAKE 1/2 TABLET ON SUNDAYS 90 tablet 3 5 Active Active Problems Problem Noted Date Diagnosed Date Constipation 01/02/2024 Elevated LDL cholesterol level 01/02/2024 Numerous skin moles 01/02/2024 Tinea versicolor 01/02/2024 Urticaria 01/02/2024 Vaping nicotine dependence, tobacco product 12/11 LSC (lichen simplex chronicus) 09/10/2021 Overview (04/05/2024): Last Assessment & Plan: Resolved on vulva. No evidence of psoriasis. Continue prn Lidex and hydroxyzine and follow up with Derm for other areas of concern. Bipolar disorder 03/26/2021 Hypothyroidism 03/26/2021 Encounters Date Type Department Care Team Description 02/04/[address] [address] Emmy Mckinley PA from Last 3 Months Immunizations Immunization Administration Dates Next Due DTaP (Infanrix) 6wks to less than 7yo 03/26/2004 HPV 9-valent (Gardisil) 9yo to less than 46yo 03/18/2022,11/13/2021,09/10/2021 Td Tetanus diptheria (Tdvax) 7yo and older 03/26 Surgical History Surgery Date Site/Laterality Comments SECTION PROCEDURE: HISTORICAL DELIVERY; COMMENT: 1999, 2003 OTHER SURGICAL HISTORY PROCEDURE: CERVICAL LEEP CONE BIOPSY [facility] PATHOLOGY EX Medical History Medical History Date Comments Hypothyroidism 03/26/2021 DX:Hypothyroidis m Bipolar disorder (CMS/HCC V2 4, CMS/HCC V28) 03/26/2021 DX:Bipolar disorder (HCC) LSC (lichen simplex chronicus) 09/10/2021 D X:LSC (lichen simplex chronicus) Family History Medical History Relation Name Comments No Known Problems Brother No Known Problems Daughter Arthritis Father Diabetes Father T1DM Hyperlipidemia Father Hypertension Father Kidney failure Father Alcohol abuse Maternal Grandfather Cirrhosis Maternal Grandfather Depression Mother Hypertension Mother Lung cancer Paternal Grandfather + smoke r Heart attack Paternal Grandmother No Known Problems Sister No Known Problems Son Breast cancer Neg Hx Colon cancer Neg Hx Ovarian cancer Neg Hx Stroke Neg Hx Relation Name Status Comments Brother Alive Daughter Alive Father Maternal Grandfather Maternal Grandmother Mother Alive Paternal Grandfather Paternal Grandmother Sister Alive Son Alive Social History Tobacco Use Types Packs/Day Years Used Date Smoking Tobacco: Never Smokeless Tobacco: Never Tobacco Cessation:Counseling Given: Not Answered Alcohol Use Standard Drinks/Week Comments Yes 0 (1 standard drink = 0.6 oz pur e alcohol) social Interpersonal Safety Answer Date Record ed Physical Abuse Unrecognized value 08/26/2024 Verbal Abuse Unrecognized value 08/26/2024 Comments No Sex and Gender Information Value Date Recorded Sex Assigned at Not on file Legal Sex Female 10:22 PM EST Gender Identity Not on file Sexual Orientation Not on file Obstetrics History * This document contains information received from the source organization and may not represent a complete record from that organization. Para Term AB IAB SAB Ectopic Multiple Livin g Live Births 5 2 1 1 0 0 2 2 Date Outcome GA Total Labor Labor/2nd/3rd Weight Sex Type Anes PTL Jazmin A1 A5 Name Clin 2001 Term F CS-LT ranv Living 2005 M CS-LT ranv Y Living Comments:BTL Last Filed Vital Signs Vital Sign Reading Time Taken Comments Blood Pressure 112/70 08/26/2024 2:08 PM EDT Pulse 75 08/26/2024 2:08 PM EDT Temperature 36.8 C (98.2 F) 08/26/2024 1:48 PM EDT Respiratory Rate 18 08/26/2024 2:08 PM EDT Oxygen Saturation 100% 08/26/2024 2:08 PM EDT Inhaled Oxygen Concentration - - Weight 72.6 kg (160 lb) 08/26/2024 12:37 PM EDT Height 167.6 cm (5' 6 ) 08/26/2024 12:37 PM EDT Body Mass Index 25.82 08/26/2024 12:37 PM EDT Plan of Treatment Upcoming Encounters Date Type Department Care Team (Late st Contact Info) Description 09/02/2025 8:50 AM EDT Appointment Radiology Department [address] [address] Health Maintenance Due Date Last Done Comments Hepatitis B Vaccines (1 of 3 - 19+ 3-dose series) 1996 COVID-19 Vaccine (3 - Pfizer risk series) 10/22/2020 09/24/2020, 09/03/2020 HIV Screening 04/21/2022 Hepatitis C Screening 04/21/2022 Social Influencers of Health Screening 04/21/2022 Influenza Vaccine (#1) 2025 Breast Cancer Screening 08/27/2026 08/28/19, 08/18/2023, 08/08/2022, Additional history exists Cholesterol Screening (Lipid Panel) 10/31/2026 10/31/2021, 08/17/2018 Cervical Cancer Screening: HPV 06/10/2029 06/10/2024, 09/10/2021 DTaP,Tdap,and Td Vaccines (4 - Td or Tdap) 03/26/2031 03/26/2021, 09/15/2012, 03/26/2004 Colorectal Cancer Screening: Colonoscopy 08/26/2034 08/26/2024 RSV Immunization Adult Patients (1 - 1-dose 75+ series) 2052 HPV Vaccines Completed 03/18/2022, 07/0 09/2021, 09/10/2021 Depression Screening Completed 06/05/2024 HIB Vaccines Aged Out No longer eligi ble based on patient's age to complete this topic Hepatitis A Vaccines Aged Out No long er eligible based on patient's age to complete this topic IPV Vaccines Aged Out No longer eligi ble based on patient's age to complete this topic MMR Vaccines Aged Out No longer eligi ble based on patient's age to complete this topic Meningococcal ACWY Vaccine Aged Out N o longer eligible based on patient's age to complete this topic Meningococcal B Vaccine Aged Out No l onger eligible based on patient's age to complete this topic Pneumococcal Vaccine: Pediatrics (0 to 5 Years) and At-Risk Patients (6 to 49 Years) Aged Out No longer eligible based on patient's age to complete this topic RSV Immunization Patients Under 20 months Aged Out No longer eligible based on patient's age to complete this topic Varicella Vaccines Aged Out No longer eligible based on patient's age to complete this topic Procedures Procedure Name Priority Date/Time Associated Diagnosis Comments MG MAMMO DIGITAL SCREENING W PATRICK BILAT Routine 08/27/2024 8:46 AM EDT Encounter for screening mammogram for breast cancer COLONOSCOPY Routine 08/26/2024 1:47 PM EDT Colon cancer screening HPV WITH REFLEX GENOTYPE Routine 06/10/2024 4:21 PM EST Encounter for gynecological examination without abnormal finding LIPID PANEL Routine 10/31/2021 from Last 3 Months or Most Recently Relevant to Health Maintenance Results * MG Mammo Digital Screening w Patrick bilat (08/27/2024 8:46 AM EDT) Anatomical Region Laterality Modality Breast Bilateral Mammography 08/27/2024 5:36 PM EDT Impressions 08/27/2024 5:39 PM EDT No mammographic evidence for malignancy. BI-RADS CATEGORY: 1 - NEGATIVE RECOMMENDATION: Screening bilateral mammogram is recommended in 1 year. Mammo Location: [facility], [address] [place] [address], [id number], . -------- FINAL REPORT -------- Dictated By: Casi Alfaro Dictated Date: 08/27/2024 17:36 ET Assigned Physician: Casi Alfaro Reviewed and Electronically Signed By: Casi Alfaro Signed Date: 08/27/2024 17:39 ET Workstation ID: [id number] Transcribed By: Self Edit Transcribed Date: 08/27/2024 17:36 ET Narrative 08/27/2024 5:39 PM EDT Bilateral screening mammogram. CLINICAL: 48 years old, Female, routine annual exam. COMPARISON: prior studies, latest from 08/18/2023 TECHNIQUE: Bilateral MLO and CC views were obtained digitally with 2D C views and 3-D mammogram (digital breast tomosynthesis). Computer-aided detection was utilized in evaluation of this exam (CAD). FINDINGS: There is no evidence of suspicious mass or architectural distortion. No worrisome calcifications are evident. There has been no significant change from prior exam(s). BREAST DENSITY: B - There are scattered areas of fibroglandular density. Procedure Note Casi Alfaro MD - 08/27/2024 Bilateral screening mammogram. CLINICAL: 48 years old, Female, routine annual exam. COMPARISON: prior studies, latest from 08/18/2023 TECHNIQUE: Bilateral MLO and CC views were obtained digitally with 2D Cviews and 3-D mammogram (digital breast tomosynthesis). Computer-aideddetection was utilized in evaluation of this exam (CAD). FINDINGS: There is no evidence of suspicious mass or architectural distortion. Noworrisome calcifications are evident. There has been no significantchange from prior exam(s). BREAST DENSITY: B - There are scattered areas of fibroglandular density. IMPRESSION: No mammographic evidence for malignancy. BI-RADS CATEGORY: 1 - NEGATIVE RECOMMENDATION: Screening bilateral mammogram is recommended in 1 year. Mammo Location: [facility], [address] [place] [address], [id number], . -------- FINAL REPORT -------- Dictated By: Casi Alfaro Dictated Date: 08/27/2024 17:36 ET Assigned Physician: Casi Alfaro Reviewed and Electronically Signed By: Casi Alfaro Signed Date: 08/27/2024 17:39 ET Workstation ID: [id number] Transcribed By: Self Edit Transcribed Date: 08/27/2024 17:36 ET Adeline SINGH BI PROCEDURE S Final Result * COLONOSCOPY Anesthesia - MAC; SP ENDOSCOPY (08/26/2024 1:47 PM EDT) Anatomical Region Laterality Modality Endoscopy 08/26/2024 1:17 PM EDT Impressions 08/26/2024 1:50 PM EDT - The entire examined colon is normal on direct and retroflexion views. - No specimens collected. Recommendation: - Repeat colonoscopy in 10 years for screening purposes. Narrative 08/26/2024 1:50 PM EDT [facility] Patient Name: Lori Butler Procedure Date: 08/26/2024 1:17 PM Date of : 1975 Age: 48 Room: ROOM 15 Gender: Female Note Status: Finalized Attending MD: Omer Aguilar MD, Procedure Date No Time: 08/26/2024 Procedure: Colonoscopy Indications: Screening for colorectal malignant neoplasm Providers: Omer Aguilar MD Referring MD: Jean Flores MD Medicines: Propofol per Anesthesia Complications: No immediate complications. Estimated Blood Loss: Estimated blood loss: none. Estimated blood loss: none. Procedure: After I obtained informed consent, the scope was passed under direct vision. Throughout the procedure, the patient's blood pressure, pulse, and oxygen saturations were monitored continuously.The Colonoscope was introduced through the anus and advanced to the ileocecal valve. The quality of the bowel preparation was good. Findings: The perianal and digital rectal examinations were normal. The entire examined colon appeared normal on direct and retroflexion views. Base of cecum not seen. Procedure Code(s): --- Professional --- G0121, Colorectal cancer screening; colonoscopy on individual not meeting criteria for high risk Diagnosis Code(s): --- Professional --- Z12.11, Encounter for screening for malignant neoplasm of colon CPT copyright 2020 [employer]. All rights reserved. The codes documented in this report are preliminary and upon inspector wire products review may be revised to meet current compliance requirements. Omer Aguilar MD 08/26/2024 1:50:18 PM This report has been signed electronically.Omer Aguilar MD Number of Addenda: 0 Note Initiated On: 08/26/2024 1:17 PM Scope In: Scope Out: Endoscopy Department at [facility] - [address] [place] [phone] Procedure Note Omer Aguilar MD - 08/26/2024 [facility] Patient Name: Lori Butler Procedure Date: 08/26/2024 1:17 PM Date of : 1975 Age: 48 Room: ROOM 15 Gender: Female Note Status: Finalized Attending MD: Omer Aguilar MD, Procedure Date No Time: 08/26/2024 Procedure: Colonoscopy Indications: Screening for colorectal malignant neoplasm Providers: Omer Aguilar MD Referring MD: Jean Flores MD Medicines: Propofol per Anesthesia Complications: No immediate complications. Estimated Blood Loss: Estimated blood loss: none. Estimated blood loss: none. Procedure: After I obtained informed consent, the scope was passed under direct vision. Throughout theprocedure, the patient's blood pressure, pulse, and oxygen saturations were monitored continuously.The Colonoscope was introduced through the anus and advanced to the ileocecal valve. The quality of the bowel preparation was good. Findings: The perianal and digital rectal examinations were normal. The entire examined colon appeared normal on direct and retroflexion views. Base of cecum not seen. Procedure Code(s): --- Professional --- G0121, Colorectal cancer screening; colonoscopy on individual not meeting criteria for high risk Diagnosis Code(s): --- Professional --- Z12.11, Encounter for screening for malignantneoplasm of colon CPT copyright 2020 [employer]. All rights reserved. The codes documented in this report are preliminary and upon inspector wire products reviewmay be revised to meet current compliance requirements. Omer Aguilar MD 08/26/2024 1:50:18 PM This report has been signed electronically.Omer Aguilar MD Number of Addenda: 0 Note Initiated On: 08/26/2024 1:17 PM Scope In: Scope Out: Endoscopy Department at [facility] - [address] [place] [phone] IMPRESSION: - The entire examined colon is normal on direct and retroflexion views. - No specimens collected. Recommendation: - Repeat colonoscopy in 10 years for screening purposes. us Jean Flores MD GI~PROCEDURE ORDERABLES Final Re sult * HPV with reflex genotype (06/10/2024 4:21 PM EST) Pathologist [facility] HPV Negative Negative LAB MICROBIOLOGY METHOD 06/14/2024 2:04 PM EST [facility] Brushing/Spatula Cervix uteri structure / Unknown 06/10/2024 4:21 PM EST 06/14/2024 6:04 AM EST [facility] MOLECULAR DIAGNOSTICS HARINI CEDENO Final Result [facility] [address] [place] [address], * (ABNORMAL) Lipid panel (10/31/2021) [facility] LDL/HDL Ratio 3 0 - 4 Triglycerides 65 0 - 150 mg/dL Cholesterol 195 0 - 200 mg/dL HDL 57 >=40 mg/dL LDL Cholesterol 125(A) 0 - 100 mg/dL Blood Venous blood specimen / Unknown Historical Provider LAB BLOOD ORDERABLES Nallely l Result from Last 3 Months or Most Recently Relevant to Health Maintenance Insurance [employer] Care Teams Patch Finisher Relationship Specialty Start Date End Date Adeline Worrell MD [address] [place] [address] [facility] - General 05/20/22
== END 2025-04-27 13:50 | disposition home or self-care (01) ==
LOC: HO.HOS 10:59
PROVIDERS: Visit Provider Physician Assistant
DX: M70.41 Prepatellar bursitis, right knee (principal)
CPT/HCPCS: 99203; G2211

== ENCOUNTER → 2025-04-27 11:01 | Outpatient (BNV) | payer OTHER, SELFPAY | PROVIDERS: Visit Provider Radiology Diagnostic Radiology | DX: M17.11 Unilateral primary osteoarthritis, right knee (principal); M25.461 Effusion, right knee | CPT/HCPCS: 73560 ==